=== PATIENT | male | born 1970 | race African-American/Black ===

== ENCOUNTER 2016-09-22 08:10 | Emergency (ER) | payer MEDICAID ==
[~2016-09-22] VITALS: Ht 190.5 cm; Wt 108.9 kg
[2016-09-22 08:29] VITALS: BP 140/77
== END 2016-09-22 10:56 | disposition left against medical advice (07) ==
LOC: ER 08:10
DX: R51 Headache (principal); Z53.21 Procedure and treatment not carried out due to patient leaving prior to being seen by health care provider